=== PATIENT | female | born 1950 | race Native Hawaiian/Other Pacific Islander ===

== ENCOUNTER 2020-04-20 21:03 | Outpatient (CLI) | payer OTHER, BC ==
[2020-04-20 23:15] LABS: PLATELET COUNT 309 K/uL (152-353)
[2020-04-20 23:39] LABS: POTASSIUM 4.3 mmol/L (3.6-5.2)
== END 2020-04-20 23:41 | disposition home or self-care (01) ==
LOC: LAB 21:03
PROVIDERS: Nurse Practitioner Family
DX: Z00.00 Encounter for general adult medical examination without abnormal findings (principal); E03.8 Other specified hypothyroidism; F41.8 Other specified anxiety disorders; F90.0 Attention-deficit hyperactivity disorder, predominantly inattentive type; F90.2 Attention-deficit hyperactivity disorder, combined type; R53.81 Other malaise; R53.83 Other fatigue; Z79.899 Other long term (current) drug therapy
CPT/HCPCS: 80053; 80061; 82306; 82607; 84439; 84443; 85027; 86376